=== PATIENT | male | born 1990 | race African-American/Black ===

== ENCOUNTER 2017-04-15 13:56 | Emergency (ER) | payer SELFPAY ==
--- NOTE | 2017-04-15 14:00 | ED Physician Documentation ---
General Adult - HISTORIAN Historian: patient - HPI Stated Complaint: concern for STD Chief Complaint: General Adult Onset: days ago Timing: still present Severity: moderate Further Comments: yes (Pt is a 26 yo male who has had dysruria, burning, and b/ l back pain. Pt had discharge from penis last week, but this has gone away. No fever, n/v.) - ROS CONST: no problems EYES/ENT: none CVS/RESP: none GI/: problems urinating MS/SKIN/LYMPH: none - PAST HX Past History: none Allergies/Adverse Reactions: Allergies Allergy/AdvReac Type Severity Reaction Status Date / Time No Known Allergies Allergy Verified 04/15/17 14:35 Home Medications: Ambulatory Orders Medication Instructions Recorded NK [NK] 04/15/17 - SOCIAL HX Smoking History: non-smoker - FAMILY HX Family History: No - REVIEWED ASSESSMENTS Nursing Assessment Reviewed: Yes Vitals Reviewed: Yes Progress - Progress Progress: Rocephin 1 gm IM Azithromycin 1 gm po Toradol 60 mg IM GC/chlamydia lab - pending Rx Ciprofloxacin 500 mg. Take one every 12 hrs for 10 days. General Adult Physical Exam - PHYSICAL EXAM GENERAL APPEARANCE: mild distress EENT: pharynx normal NECK: normal inspection, supple RESPIRATORY: no resp distress, chest non-tender, breath sounds normal CVS: reg rate & rhythm, heart sounds normal ABDOMEN: soft, normal bowel sounds, non-tender BACK: normal inspection, CVA tenderness (R), CVA tenderness (L) SKIN: warm/dry, normal color EXTREMITIES: non-tender, normal range of motion, no evidence of injury NEURO: oriented X3, motor nml, sensation nml Discharge Clincal Impression: dysuria, possible STD UTI (urinary tract infection) Qualifiers: Urinary tract infection type: site unspecified Hematuria presence: without hematuria Qualified Code(s): N39.0 - Urinary tract infection, site not specified Referrals: Primary Doctor,No [Primary Care Provider] - Condition: Stable Disposition: 01 HOME, SELF-CARE Decision to Admit: NO Decision Time: 14:37
[2017-04-15] MEDS ORDERED: cefTRIAXone SODIUM 1 GM VIAL IM ONE (14:28)
[2017-04-15] MEDS ORDERED: AZITHROMYCIN 250 MG TABLET PO ONE (14:28)
[2017-04-15] MEDS ORDERED: KETOROLAC TROMETHAMINE 60 MG/2 ML VIAL IM ONE (14:29)
[2017-04-16 05:31] LABS: APPEARANCE,URINE CLEAR (CLEAR); COLOR,URINE YELLOW (YELLOW); OCCULT BLOOD,URINE NEGATIVE (NEGATIVE); PH URINE 7.5 (5.0 - 8.0)
== END 2017-04-15 15:00 | disposition home or self-care (01) ==
LOC: ED 13:56
DX: R30.0 Dysuria (principal); N39.0 Urinary tract infection, site not specified
CPT/HCPCS: 87491; 87591; J0696; J1885; 81002; 87086; 96372; 99283

== ENCOUNTER 2018-11-04 19:18 | Emergency (ER) | payer SELFPAY ==
[2018-11-04] MEDS: Lidocaine 1% 5ml 10 MG/ML VIAL IJ ONE (19:25)
[2018-11-04] MEDS ORDERED: IBUPROFEN 200 MG TABLET PO ONE ×2 (20:00)
--- NOTE | 2018-11-04 20:01 | ED Physician Documentation ---
General Adult - HISTORIAN Historian: patient - HPI Stated Complaint: Right Hand Laceration Chief Complaint: Laceration/Recheck/Suture (Right Finger) Additional Information: Patient is a 28-year-old male that presents to the ER with laceration at the carpometacarpal joint of the right hand (flap). Patient states that he was doing dishes and accidentally cut the finger on a broken glass. He also states that he was in [facility] and does not have his lisinopril- he was on 20 mg. He is also asking for script for Clindamycin for his dental infection- he states that he took 2 days worth in [facility] but they did not give him the rest. Onset: hours Timing: still present Severity: mild Modifying Factors: broken glass- doing dishes Location: right carpalmetacarpal joint Further Comments: no - ROS CONST: no problems EYES/ENT: none CVS/RESP: none GI/: none MS/SKIN/LYMPH: none NEURO/PSYCH: denies: headache - PAST HX Past History: none Other History: none Surgeries/Procedures: none Immunizations: tetanus, UTD Allergies/Adverse Reactions: Allergies Allergy/AdvReac Type Severity Reaction Status Date / Time Penicillins Allergy Verified 11/04/18 19:30 Home Medications: Ambulatory Orders Medication Instructions Recorded Clindamycin HCl 300 mg PO Q6H 10 Days #40 capsule 11/04/18 Lisinopril 20 mg PO DAILY #30 tablet 11/04/18 - SOCIAL HX Smoking History: less than 1 pack/day Alcohol Use: none Drug Use: none - FAMILY HX Family History: No - VITAL SIGNS Vital Signs: Vital Signs Temp Pulse Resp BP Pulse Ox 80 18 161/102 98 11/04/18 19:18 11/04/18 19:18 11/04/18 19:18 11/04/18 19:18 Procedures Wound Location: upper extremity (FINGER LACERATION) Wound Length: 5 cm Wound's Depth, Shape: flap Wound Explored: no foreign body removed Irrigated w/ Saline (ccs): 250 Betadine Prep?: Yes Anesthesia: 1% Lidocaine Volume of Anesthetic: 5 ML Wound Debrided: minimal Wound Repaired With: sutures Suture Size/Type: 4:0 Number of Sutures: 11 Layer Closure?: No Splint Applied?: Yes Type of Splint Applied: FINGER SPLINT AND DRESSING ED Results Lab/Radiology - Orders Orders: ED Orders Category Date Time Status Lidocaine 1% 5ml [Xylocaine] Med 11/04/18 19:25 Once 50 mg IJ NOW ONE General Adult Physical Exam - PHYSICAL EXAM GENERAL APPEARANCE: mild distress EENT: eye inspection normal, ENT inspection normal, pharynx normal, MELANIE NECK: normal inspection RESPIRATORY: breath sounds normal CVS: heart sounds normal ABDOMEN: soft, normal bowel sounds SKIN: warm/dry, other (lac to the right finger) EXTREMITIES: normal range of motion NEURO: oriented X3, CN's nml as tested, motor nml, sensation nml, mood/affect nml, cognition normal Discharge Clincal Impression: Finger laceration Prescriptions: Clindamycin HCl 300 mg PO Q6H 10 Days #40 capsule Lisinopril 20 mg PO DAILY #30 tablet Referrals: Primary Doctor,No [Primary Care Provider] - 2 Days Additional Instructions: Follow up with PCP in 7-10 days to have sutures removed Monitor for signs and symptoms of infection; redness/swelling/drainage Take antibiotic as directed; Clindaymcin 300 mg by mouth every 6 hours Script for Lisinopril 20 mg by mouth daily (f/u with PCP for refill) Condition: Good Disposition: 01 HOME, SELF-CARE Decision to Admit: NO Decision Time: 20:10
[2018-11-04 20:03] VITALS: BP 161/102
== END 2018-11-04 20:14 | disposition home or self-care (01) ==
LOC: ED 19:18
DX: S61.011A Laceration without foreign body of right thumb without damage to nail, initial encounter (principal); W25.XXXA Contact with sharp glass, initial encounter; Y93.G1 Activity, food preparation and clean up; Y92.9 Unspecified place or not applicable
CPT/HCPCS: 12002; 99282; 99283; J7030